=== PATIENT | female | born 1950 | race Caucasian/White ===

== ENCOUNTER 2016-07-11 08:54 | Day surgery (SDC) | payer BC ==
[~2016-07-11] VITALS: Ht 165.1 cm; Wt 61.0 kg
[~2016-07-11 08:54] MED LIST: CALCIUM PO; CLON-365 PO; FENTANYL PF 100 MCG/2ML ONE; LAMO25TA PO; LYSINE PO; MIDAZOLAM 1 MG/ML, 2ML ONE; MVT PO; ROPIvacaine/PF 0.5%, 20 ML ONE; TRAZ50TA18 PO; VITAMIN D3 PO; ZINC PO
[2016-07-11] MEDS ORDERED: LACTATED RINGERS 1,000 ML IV SCH (09:19)
[2016-07-11 09:21] VITALS: BP 115/72
[2016-07-11] MEDS ORDERED: FLUT9.9S NAS (09:49)
[2016-07-11] MEDS ORDERED: OXYC5CAP4 PO (09:49)
[2016-07-11] MEDS ORDERED: OXYcodone 5 MG/5 ML ORAL.SOL UDC PO PRN (10:00)
[2016-07-11] MEDS ORDERED: ONDANSETRON 2MG/ML, 2ML IVPush PRN (10:00)
[2016-07-11] MEDS ORDERED: hydrALAzine 20 MG/ML, 1ML IV PRN (10:00)
[2016-07-11] MEDS ORDERED: HYDROmorphone 1 MG/ML, 1ML IV PRN (10:00)
[2016-07-11] MEDS ORDERED: PROMETHAZINE 25 MG/ML, 1ML IV PRN (10:00)
[2016-07-11] MEDS ORDERED: LABETALOL 5MG/ML, 20ML IV PRN (10:00)
[2016-07-11] MEDS ORDERED: METOCLOPRAMIDE 5 MG/ML, 2ML IV PRN (10:00)
[2016-07-11] MEDS ORDERED: NEOSPORIN OINT, 15GM ONE (10:05)
[2016-07-11] MEDS ORDERED: PROPOFOL 10 MG/ML, 20ML ONE (10:20)
[2016-07-11] MEDS ORDERED: CEFAZOLIN 1,000 MG ONE (10:20)
[2016-07-11] MEDS ORDERED: DEXAMETHASONE 4 MG/ML, 1ML ONE (10:20)
[2016-07-11] MEDS ORDERED: ONDANSETRON 2MG/ML, 2ML ONE (10:20)
[2016-07-11] MEDS ORDERED: OXYcodone 5 MG/5 ML ORAL.SOL UDC ONE (11:44)
[2016-07-11] MEDS ORDERED: FENTANYL PF 100 MCG/2ML ONE (11:59)
[2016-07-11] MEDS: FENTANYL PF 100 MCG/2ML IV PRN ×2 (12:01→12:10)
== END 2016-07-11 14:05 | disposition home or self-care (01) ==
LOC: OUT 08:54
PROVIDERS: ATTEND Orthopaedic Surgery
DX: S42.291A Other displaced fracture of upper end of right humerus, initial encounter for closed fracture (principal); W19.XXXA Unspecified fall, initial encounter; Y93.9 Activity, unspecified; Y92.89 Other specified places as the place of occurrence of the external cause; Y99.9 Unspecified external cause status; F32.9 Major depressive disorder, single episode, unspecified
CPT/HCPCS: 23615; 73060; 76000; 81003; 93005; C1713; J0690; J1100; J2250; J2405; J2704; J2795; J3010; J7120